=== PATIENT | male | born 1940 | race Caucasian/White ===

== ENCOUNTER → 2017-07-09 | Outpatient (CLI) | payer OTHER ==
--- NOTE | 2017-07-12 09:03 | RSPPFT ---
DATE OF PROCEDURE: 07/08/17 COMMENTS: VOLUMES DYNAMIC: FVC and FEV1 normal. STATIC: FRC, RV and TLC normal. FLOWS: FEV1% and FEF 25-75 normal. DIFFUSION: Normal. FLOW VOLUME LOOP: Normal configuration. IMPRESSION: Normal pulmonary functions with no significant obstruction or restriction.
== END ==
LOC: PHRSP 08:44
PROVIDERS: ATTEND Internal Medicine
DX: J44.9 Chronic obstructive pulmonary disease, unspecified (principal)
CPT/HCPCS: 94618